=== PATIENT | female | born 1960 | race Caucasian/White ===

== ENCOUNTER 2021-01-04 15:08 | Observation (INO) | payer OTHER ==
[2021-01-03 20:20] VITALS: BP 124/64
[~2021-01-04] VITALS: Ht 152.4 cm; Wt 49.9 kg
[~2021-01-04 15:08] MED LIST: ADULT LOW DOSE81 MG PO; CAL-MAG-ZINC T1 EACH PO; CALCARB 600 WI1 EACH PO; COD LIVER OIL1 EAC5 PO; COLACE 100 MG100 MG PO; FISH OIL 1,0001 EAC5 PO; HYDROCODON-ACE1 EAC2 PO; IBUPROFEN 600600 M1 PO; IRON325 PO; MULTI VITAMIN1 EACH PO; MULTIVITAMINS1 EAC7 PO; TYLENOL EX-STR500 M2 PO; ZIAC 2.5/6.252.5 MG PO
[2021-01-04 15:17] VITALS: BP 201/115
[2021-01-04 15:31] LABS: ABSOLUTE BASOPHILS 0.1 thou/uL (0.0-0.2); ABSOLUTE EOSINOPHILS 0.2 thou/uL (0.0-0.7); ABSOLUTE LYMPHOCYTES 2.5 thou/uL (0.8-5.3); ABSOLUTE MONOCYTES 0.5 thou/uL (0.0-1.2); ABSOLUTE NEUTROPHILS 6.4 thou/uL (1.6-8.1); BASOPHILS 1.3 %; EOSINOPHILS 1.8 %; HEMOGLOBIN 14.6 gm/dL (12.0-15.0); LYMPHOCYTES 25.4 %; MCH 29.3 pg (26.0-34.0); MCHC 34.9 g/dL (28.0-37.0); MCV 84.1 fL (80.0-100.0); MONOCYTES 5.3 %; MPV 7.6 fl. (7.2-11.1); NUCLEATED RBCS 0 /100WBC; PLATELET COUNT* 333 thou/uL (150-400); POLYS 66.2 %; RBC 4.99 mil/uL (4.20-5.00); RDW-CV 13.9 % (10.5-14.5); WBC 9.7 thou/uL (4.0-11.0)
[2021-01-04 15:42] LABS: CREATININE 0.6 mg/dL (0.6-1.3); POTASSIUM 3.7 mmol/L (3.5-5.1)
[2021-01-04 15:46] LABS: ALBUMIN 4.3 g/dL (3.4-5.0); TOTAL BILIRUBIN 0.4 mg/dL (<0.1-1.0); TOTAL PROTEIN 8.9 g/dL (6.4-8.2)
[2021-01-04 16:04] LABS: URINE BILIRUBIN NEGATIVE (Negative); URINE BLOOD NEGATIVE (Negative); URINE CLARITY CLEAR; URINE COLOR YELLOW; URINE GLUCOSE-RANDOM NEGATIVE (Negative); URINE KETONES NEGATIVE (Negative); URINE LEUKOCYTES NEGATIVE (Negative); URINE NITRITE NEGATIVE (Negative); URINE PROTEIN NEGATIVE (Negative); URINE UROBILINOGEN 0.2 E.U./dl (0.2-1.0)
[2021-01-04 17:58] VITALS: BP 152/87
--- NOTE | 2021-01-04 18:21 | NUR ---
PT ORIENTED TO ROOM AND UNIT, BED LOW AND LOCKED, SIDE RAILS UP X3, CALL LIGHT IN REACH, TELE APPLIED. PT STATED THAT HER 4 MONTHS AGO. WILL PLACE SPIRITUAL CONSULT. PT STATES THAT SHE HAS BEEN DEPRESSED BUT HAS NO THOUGHTS OF HARMING HERSELF. PT IN ROOM CLOSE TO NURSING STATION. WILL CONTINUE TO ASSESS.
[2021-01-04 19:05] VITALS: BP 156/92
[2021-01-04 20:00] VITALS: BP 151/92
[2021-01-05] VITALS (8 sets, daily range): BP systolic 135–182; BP diastolic 74–91
[2021-01-05 06:57] LABS: ALBUMIN 3.4 g/dL (3.4-5.0); ALKALINE PHOSPHATASE 95 U/L (46-116); ANION GAP 7 mmol/L (7-16); BUN 9 mg/dL (7-18); CHLORIDE 105 mmol/L (98-107); CHOLESTEROL 194 mg/dL (<200); CO2 29 mmol/L (21-32); CREATININE 0.7 mg/dL (0.6-1.3); GLUCOSE 96 mg/dL (70-99); HDL CHOLESTEROL 40 mg/dL (>40); LDL CHOLESTEROL 131 mg/dL (<100); POTASSIUM 3.8 mmol/L (3.5-5.1); SGOT 18 U/L (15-37); SGPT 29 U/L (30-65); SODIUM 141 mmol/L (136-145); TC:HDL 4.9 Ratio (Not establshd); TOTAL BILIRUBIN 0.5 mg/dL (<0.1-1.0); TOTAL PROTEIN 7.4 g/dL (6.4-8.2); TRIGLYCERIDE 115 mg/dL (<150); VLDL 23 mg/dL (<40)
[2021-01-05 06:59] LABS: SERUM ASSESSMENT CLEAR
--- NOTE | 2021-01-05 10:22 | NUR ---
PT VOICED NO CONCERNS THIS SHIFT. 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 C/O DIZINESS WHEN STANDING BUT STATES ITS BETTER THAN YESTERDAY. NIH = 0 THIS SHIFT. AAOX4 BUT NOTED TO BE FORGETFUL AND SOMETIMES STRUGGLES TO GET WORDS OUT. HOURLY ROUNDING COMPLETED. CALL LIGHT WITHIN REACH. HIGH FALL PRECAUTIONS IN PLACE.
--- NOTE | 2021-01-05 12:12 | EKG ---
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 Ischemia cannot be excluded. Electronically Signed On 01-05-2021 12:12:42 CDT by Eulalio Nieto [email or web address] <ELECTRONICALLY SIGNED> By: Shayy Nieto MD, [facility] 01/05/21 1212 1515 1515 Shayy Nieto MD, [facility] /EPI
--- NOTE | 2021-01-05 18:03 | NUR ---
PT UP TO BATHROOM AND TOLERATING PO WELL. HAD CT OF HEAD TODAY AND WILL HAVE MRI IN THE AM. WILL CONTINUE TO ASSESS.
[2021-01-06 00:21] VITALS: BP 165/88
[2021-01-06 02:06] LABS: GLYCOHEMOGLOBIN (HGB A1C) 5.8 % (4.8-5.6)
[2021-01-06 04:46] VITALS: BP 153/81
--- NOTE | 2021-01-06 07:02 | NUR ---
ASSUMED PT CARE AT 1915. NURSING ASSESSMENT COMPLETED AT START OF SHIFT, PT VOICED NO CONCERNS. 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 NIH 0 THIS SHIFT. HOURLY ROUNDING COMPLETED. CALL LIGHT REMAINS WITHIN REACH.
[2021-01-06 11:00] VITALS: BP 161/91
[2021-01-06 12:00] VITALS: BP 169/95
--- NOTE | 2021-01-06 13:23 | NUR ---
Pt is A&O. Independent. Resides at home alone. No DME. No hx of HH or SNF. Goal is to dc home, no needs anticipated. Cards following.
[2021-01-06] MEDS ORDERED: LIPITOR40 MG PO (13:47)
[2021-01-06] MEDS ORDERED: ASA81BEC PO (13:47)
--- NOTE | 2021-01-06 13:56 | 2DMMODE ---
[place] [address] 2 D/M-MODE ECHOCARDIOGRAM Name: CADY CORRAL Room: [address] Amirah Esquivel#: [id number] Admission: 01/04/21 Attend Phys: Chlee Montelongo Discharge: Date of : 64 Date of Service: 01/06/21 1356 Report #: [id number] THIS REPORT FOR: cc: FAM - No family physician/PCP FAM - No family physician/PCP Kameron Ryan MD [facility] ~ APPROVED REPORT Study performed: 01/06/2021 11:21:11 EXAM: Comprehensive 2D, Doppler, and color-flow Echocardiogram Patient Location: In-Patient Room #: [facility] Status: routine BSA: 1.45 HR: 72 bpm BP: 153/81 mmHg Rhythm: NSR Other Information Study Quality: Good Indications CVA/TIA Echo Enhancing Agent Indication: Rule out Shunt Agent(s) / Amount(s) Used: Agitated Saline 10 cc 2D Dimensions IVSd: 7.70 (7-11mm) LVOT Diam: 17.77 (18-24mm) LVDd: 42.18 mm PWd: 7.38 (7-11mm) Ascending Ao: 32.63 (22-36mm) LVDs: 22.35 (25-40mm) Aortic Root: 28.10 mm Volumes Left Atrial Volume (Systole) LA ESV Index: 18.00 mL/m2 Aortic Valve AoV Peak Velasquez.: 1.22 m/s AO Peak Gr.: 5.98 mmHg LVOT Max P.41 mmHg AO Mean Gr.: 3.44 mmHg LVOT Mean P.37 [place] [address] 2 D/M-MODE ECHOCARDIOGRAM Name: CADY CORRAL Room: [address] Amirah RamirezRJeremias#: [id number] Admission: 01/04/21 Attend Phys: Chele Montelongo Discharge: Date of : 64 Date of Service: 01/06/21 1356 Report #: [id number] LVOT Max V: 0.92 m/s AO V2 VTI: 26.04 cm LVOT Mean V: 0.52 m/s LINA (VTI): 1.70 cm2 LVOT V1 VTI: 17.83 cm Mitral Valve E/A Ratio: 0.81 MV Decel. Time: 193.56 ms MV E Max Velasquez.: 0.68 m/s MV PHT: 56.13 ms MVA (PHT): 3.92 cm2 TDI E/Lateral E': 6.80 E/Medial E': 8.50 Medial E' Velasquez.: 0.08 m/s Lateral E' Velasquez.: 0.10 m/s Pulmonary Valve PV Peak Velasquez.: 0.89 m/s PV Peak Gr.: 3.18 mmHg Tricuspid Valve RAP Estimate: 5.00 mmHg TR Peak Gr.: 16.27 mmHg RVSP: 21.00 mmHg PA Pressure: 21.00 mmHg Left Ventricle The left ventricle is normal size. There is normal LV segmental wall motion. There is normal left ventricular wall thickness. Left ventricular systolic function is normal. The left ventricular ejection fraction is within the normal range. LVEF is 60-65%. Grade I - abnormal relaxation pattern. Right Ventricle The right ventricle is normal size. The right ventricular systolic function is normal. Atria The left atrium size is normal. The interatrial septum is intact with no evidence for an atrial septal defect. The right atrium size is normal. Aortic Valve The aortic valve is normal in structure. No aortic regurgitation is present. There is no aortic valvular stenosis. Mitral Valve The mitral valve is normal in structure. Trace [place] [address] 2 D/M-MODE ECHOCARDIOGRAM Name: CADY CORRAL Room: [address] M.RJeremias#: [id number] Admission: 01/04/21 Attend Phys: Chele Montelongo Discharge: Date of : 64 Date of Service: 01/06/21 1356 Report #: [id number] No evidence of mitral valve stenosis. Tricuspid Valve The tricuspid valve is normal in structure. Trace tricuspid regurgitation. No pulmonary hypertension. Pulmonic Valve The pulmonary valve is normal in structure. Trace pulmonic regurgitation. Great Vessels The aortic root is normal in size. IVC is normal in size and collapses >50% with inspiration. Pericardium There is no pericardial effusion. <Conclusion> LVEF is 60-65%. The interatrial septum is intact with no evidence for an atrial septal defect. <ELECTRONICALLY SIGNED> By: Kameron Ryan MD, FACC 01/06/21 1356 1356 1356 Kameron Ryan MD, FACC /INF
[2021-01-06 14:10] VITALS: BP 161/91
--- NOTE | 2021-01-06 14:19 | EKG ---
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1960 Requested By: Cat Lazo Order Number: [id number] Reading MD: Kameron Ryan Measurements Intervals [place] Rate: 84 P: 43 [place]: 159 QRS: 16 QRSD: 98 T: -57 QT: 374 QTc: 443 Interpretive Statements Sinus rhythm LVH with secondary repolarization abnormality Compared to ECG 01/04/2021 15:15:11 No significant changes Electronically Signed On 01-06-2021 14:19:28 CDT by Kameron Ryan [email or web address] <ELECTRONICALLY SIGNED> By: Kameron Ryan MD, [facility] 01/06/21 1419 1305 1305 Kameron Ryan MD, [facility] /EPI
--- NOTE | 2021-01-06 15:02 | NUR ---
PT DISCHARGED TO PRIVATE CAB WITH VOUCHER TO RETURN HOME AO X4, PT ON RA, NO COMPLAINT OF PAIN. BP WAS A BIT ELEVATED THIS AM BUT SHE HAD JUST HAD MRI AND WAS SUPER ANXIOUS ABOUT THIS. PT WAS STAND BY TO TOILET. PT WAS EAGER TO GET HOME, DISCHARGE ORDERS REVIEWED WITH PT AND QUESTIONS ANSWERED. PT WAS TAKEN IN STABLE CONDITION TO FRONT ENTRANCE BY WHEELCHAIR BY STAFF
--- NOTE | 2021-01-07 12:48 | CON ---
[address] [address] CONSULTATION Name: CADY CORRAL Room: [address] Amirah Esquivel#: [id number] Admission: 01/04/21 Attend Phys: Gavi Donnelly Discharge: 01/06/21 Date of : 64 Report #: [id number] THIS REPORT FOR: cc: LUANA - No family physician/PCP FAM - No family physician/PCP Refugio Paige MD ~ DOC #: [id number] Refugio Paige MD DATE OF CONSULTATION: 01/05/2021 HISTORY OF PRESENT ILLNESS: This is a 60-year-old male patient who was evaluated by me for the possibility of stroke. The patient says that she woke up with dizziness. She had some ambulation difficulty, symptoms are improving. She, according to the record, complained of multiple other symptoms but to me she denies any of those symptoms this morning. In fact her dizziness is also better. She states when she tries to move, her dizziness comes back. REVIEW OF SYSTEMS: Positive for some anxiety. He has some nausea, vomiting. A 14-point review of system was carried out and it is mostly noncontributory. She was hypertensive when she came in. She does not take any medication for hypertension. She says she does not have any family doctor but would like to get one. She wants to go to [place]. A 14-point review of systems was otherwise noncontributory. PAST SURGICAL HISTORY: She had hysterectomy in the past.. PAST MEDICAL HISTORY: Negative for any stroke. FAMILY HISTORY: Negative for the stroke.. SOCIAL HISTORY: She drinks alcohol rarely but does not smoke. PHYSICAL EXAMINATION: NEUROLOGIC: Indicate she is alert, responsive, able to follow simple and complex commands. Her speech, concentration, fund of knowledge and memory is unremarkable. Cranial nerve examination is unremarkable. Neuromuscular examination is checked for strength, sensation, reflexes and tone is symmetrical. She does not appear to be clinically ataxic but I did not make her walk, I could not look at the patient's fundus. There is no meningeal sign. She is moderately built individual. Her hearing and vision adequate. She has no thyroid mass. NECK; There is no carotid bruit. CARDIAC: Unremarkable. LUNGS: No respiratory difficult was noted. EXTREMITIES: No edema or cyanosis [place] [address] CONSULTATION Name: CADY CORRAL Room: [address] Amirah Esquivel#: [id number] Admission: 01/04/21 Attend Phys: Gavi Donnelly Discharge: 01/06/21 Date of : 64 Report #: [id number] IMPRESSION: The symptoms are most like because of ENT pathology. I do not see any CT scan done in the emergency room here so I will go ahead and do CT and at the same time go ahead and do the CT angio to look at any posterior fossa abnormality. MRI is scheduled but main thing we need to look at is the vasculature and we will ____. I discussed the procedure and its potential complications and she understands it and she wants to proceed with it and I will get it done today. Thank you very much for allowing me to share in the management of this patient and you have any questions please feel free to contact me. MD YOLIS Heck/[facility] <ELECTRONICALLY SIGNED> By: Refugio Paige MD 01/07/21 1248 0942 1302Pbev Paige MD /nt
== END 2021-01-06 15:00 | disposition home or self-care (01) ==
LOC: M.ERS 15:08 → M.TBA-ER 16:41 → M.2W 16:41
PROVIDERS: Emergency Medicine; Family Medicine; ADMIT Internal Medicine; ATTEND Internal Medicine
DX: I16.0 Hypertensive urgency (principal); Z20.822 Contact with and (suspected) exposure to COVID-19; H81.10 Benign paroxysmal vertigo, unspecified ear; F41.9 Anxiety disorder, unspecified; R11.2 Nausea with vomiting, unspecified; F32.9 Major depressive disorder, single episode, unspecified; Z79.82 Long term (current) use of aspirin; Z79.899 Other long term (current) drug therapy

== ENCOUNTER 2021-01-09 02:08 | Emergency (ER) | payer OTHER ==
[~2021-01-09] VITALS: Ht 152.4 cm; Wt 49.0 kg
[~2021-01-09 02:08] MED LIST changes: +ASA81BEC PO; +LIPITOR40 MG PO
[2021-01-09 02:55] LABS: ABSOLUTE BASOPHILS 0.1 thou/uL (0.0-0.2); ABSOLUTE EOSINOPHILS 0.3 thou/uL (0.0-0.7); ABSOLUTE LYMPHOCYTES 2.1 thou/uL (0.8-5.3); ABSOLUTE MONOCYTES 0.8 thou/uL (0.0-1.2); ABSOLUTE NEUTROPHILS 4.7 thou/uL (1.6-8.1); BASOPHILS 1.3 %; EOSINOPHILS 3.9 %; HEMATOCRIT 40.6 % (37.0-47.0); HEMOGLOBIN 14.3 gm/dL (12.0-15.0); LYMPHOCYTES 26.3 %; MCH 29.2 pg (26.0-34.0); MCHC 35.1 g/dL (28.0-37.0); MCV 83.3 fL (80.0-100.0); MONOCYTES 9.4 %; MPV 7.9 fl. (7.2-11.1); NUCLEATED RBCS 0 /100WBC; PLATELET COUNT* 287 thou/uL (150-400); POLYS 59.1 %; RBC 4.87 mil/uL (4.20-5.00); RDW-CV 13.3 % (10.5-14.5)
[2021-01-09 02:59] LABS: CALCIUM 9.1 mg/dL (8.5-10.1); CREATININE 0.7 mg/dL (0.6-1.3); POTASSIUM 3.8 mmol/L (3.5-5.1)
[2021-01-09 04:40] VITALS: BP 141/78
--- NOTE | 2021-01-09 11:42 | EKG ---
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[place] : 1960 Requested By: Brandi Voss Order Number: [id number] Reading MD: Epi Benson Measurements Intervals [place] Rate: 64 P: -11 [place]: 176 QRS: -2 QRSD: 85 T: -39 QT: 389 QTc: 402 Interpretive Statements Sinus rhythm LVH with secondary repolarization abnormality Baseline wander in lead(s) V5 Compared to ECG 01/06/2021 13:05:25 No significant changes Electronically Signed On 01-09-2021 11:42:27 CDT by Epi Benson [email or web address] <ELECTRONICALLY SIGNED> By: Epi Benson MD, FAC 01/09/21 1142 0 0 Epi Benson MD, [facility] /EPI
== END 2021-01-09 04:40 | disposition home or self-care (01) ==
LOC: M.ERS 02:08
PROVIDERS: Emergency Medicine
DX: I10 Essential (primary) hypertension (principal); Z79.82 Long term (current) use of aspirin; Z79.899 Other long term (current) drug therapy

== ENCOUNTER 2021-01-28 02:58 | Emergency (ER) | payer OTHER ==
[~2021-01-28] VITALS: Ht 152.4 cm; Wt 48.5 kg
[2021-01-28] MEDS ORDERED: CELEXA 10 MG TA10 M1 PO (03:18)
[2021-01-28] MEDS ORDERED: CARVEDILOL12.5 MG PO (03:18)
[2021-01-28 03:20] LABS: URINE BILIRUBIN NEGATIVE (Negative); URINE BLOOD NEGATIVE (Negative); URINE CLARITY CLEAR; URINE COLOR STRAW; URINE GLUCOSE-RANDOM NEGATIVE (Negative); URINE KETONES NEGATIVE (Negative); URINE LEUKOCYTES-REFLEX NEGATIVE (Negative); URINE NITRITE-REFLEX NEGATIVE (Negative); URINE PROTEIN NEGATIVE (Negative); URINE UROBILINOGEN 0.2 E.U./dl (0.2-1.0)
[2021-01-28 03:23] LABS: ABSOLUTE BASOPHILS 0.1 thou/uL (0.0-0.2); ABSOLUTE EOSINOPHILS 0.5 thou/uL (0.0-0.7); ABSOLUTE LYMPHOCYTES 2.3 thou/uL (0.8-5.3); ABSOLUTE MONOCYTES 0.8 thou/uL (0.0-1.2); ABSOLUTE NEUTROPHILS 6.8 thou/uL (1.6-8.1); BASOPHILS 0.9 %; EOSINOPHILS 4.7 %; HEMATOCRIT 39.2 % (37.0-47.0); HEMOGLOBIN 13.7 gm/dL (12.0-15.0); LYMPHOCYTES 22.1 %; MCH 29.5 pg (26.0-34.0); MCV 84.4 fL (80.0-100.0); MONOCYTES 7.5 %; NUCLEATED RBCS 0 /100WBC; PLATELET COUNT* 234 thou/uL (150-400); POLYS 64.8 %; RBC 4.65 mil/uL (4.20-5.00); RDW-CV 13.6 % (10.5-14.5); WBC 10.5 thou/uL (4.0-11.0)
[2021-01-28 03:44] LABS: CALCIUM 8.8 mg/dL (8.5-10.1); CREATININE 0.7 mg/dL (0.6-1.3); POTASSIUM 3.7 mmol/L (3.5-5.1)
[2021-01-28 03:55] LABS: ALBUMIN 3.7 g/dL (3.4-5.0); MAGNESIUM 2.1 mg/dL (1.8-2.4); TOTAL BILIRUBIN 0.4 mg/dL (<0.1-1.0); TOTAL PROTEIN 7.9 g/dL (6.4-8.2)
[2021-01-28 05:00] VITALS: BP 168/82
--- NOTE | 2021-01-28 12:03 | EKG ---
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
== END 2021-01-28 05:01 | disposition home or self-care (01) ==
LOC: M.ERS 02:58
PROVIDERS: Emergency Medicine
DX: R00.1 Bradycardia, unspecified (principal); I10 Essential (primary) hypertension; Z86.2 Personal history of diseases of the blood and blood-forming organs and certain disorders involving the immune mechanism